=== PATIENT | female | born 1970 ===

== ENCOUNTER 2021-08-10 05:27 | Day surgery (SDC) | payer OTHER ==
[~2021-08-10 05:27] MED LIST: CLONAZEPAM2 M1 PO; MULTI VITAMIN1 EACH PO; ZOLOFT100 MG PO
== END 2021-08-10 14:45 | disposition home or self-care (01) ==
LOC: CIR.AMB 05:27
PROVIDERS: ATTEND Obstetrics & Gynecology Gynecologic Oncology
DX: C51.0 Malignant neoplasm of labium majus (principal); Z20.822 Contact with and (suspected) exposure to COVID-19